=== PATIENT | male | born 1990 | race Two or more races ===

== ENCOUNTER 2018-09-04 14:11 | Emergency (ER) | payer MEDICAID, OTHER ==
[~2018-09-04] VITALS: Ht 188 cm; Wt 90.7 kg
[2018-09-04 14:35] VITALS: BP 130/75
[2018-09-04] MEDS ORDERED: TETANUS-DIPTH-ACEL PERTUSSIS 0.5ML SYRG IM ONE (16:30)
[2018-09-04] MEDS ORDERED: LIDOCAINE 1% HCL (LOCAL ANESTH.) INJ 20ML MDV IJ ONE (16:30)
== END 2018-09-04 17:14 | disposition home or self-care (01) ==
LOC: ER 14:18
DX: S61.212A Laceration without foreign body of right middle finger without damage to nail, initial encounter (principal); W25.XXXA Contact with sharp glass, initial encounter; Y93.G1 Activity, food preparation and clean up; Y92.090 Kitchen in other non-institutional residence as the place of occurrence of the external cause; Y99.8 Other external cause status
CPT/HCPCS: 12002; 90471; 90715; 99283; J2001